=== PATIENT | female | born 1970 | race Caucasian/White ===

== ENCOUNTER 2016-11-15 09:27 | Emergency (ER) | payer OTHER ==
[~2016-11-15] VITALS: Ht 162.6 cm; Wt 53.0 kg
[2016-11-15 09:39] VITALS: BP 109/72; PULSE 78; RESP 18; TEMP 97.8; O2SAT 100
[2016-11-15 09:56] VITALS: O2SAT 100
[2016-11-15] MEDS ORDERED: METO25TA3 PO (09:58)
[2016-11-15] MEDS ORDERED: SYNT88TA PO (09:58)
[2016-11-15] MEDS ORDERED: ALPR.5 PO (09:58)
--- NOTE | 2016-11-15 10:06 | PD ---
HPI Chief Complaint: Chest Pain Time Seen by Provider: 09:43 Travel History International Travel<30 days: No Contact w/Intl Traveler<30days: No Traveled to known affect area: No History of Present Illness HPI 46 years old female complains of epigastric abdominal pain and chest pain. Patient states the symptoms started yesterday. Patient states that she has history of gastroparesis and has been seeing GI specialist for that. Patient states that the pain is stabbing pain aching pain epigastric area and substernally. Patient denies any pain radiation. Patient denies palpitation diaphoresis. Patient states that she had in mid and nausea. Patient states that the pain is not associate with exertion. Patient denies any fever chills. Patient denies history hypertension, diabetes, dyslipidemia. Patient denies history of CAD. Patient has family history of heart disease. 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 PFSH Past Medical History Hx Anticoagulant Therapy: No Anxiety: Yes Heart Rhythm Problems: Yes (Reports irregular heart beat) Cardiovascular Problems: Yes ("Irregular heart beat", MVP) Chemotherapy: No Chest Pain: Yes (This admission) Diabetes: No Gastrointestinal Disorders: Yes ("Gallbladder issues") Respiratory: No Thyroid Disease: Yes (Hypo-) Influenza Vaccination: Yes ?: Not LMP: 11/03/16 Tubal Ligation: Yes Past Surgical History Appendectomy: Yes Hysterectomy: No Social History Alcohol Use: Yes (Occ.) Tobacco Use: No Substance Use: No Allergies-Medications (Allergen,Severity, Reaction): Coded Allergies: Sulfa (Verified Allergy, Severe, Rash, 11/15/16) Lexapro (Verified Adverse Reaction, Severe, Vomiting, 11/15/16) Reported Meds & Prescriptions Reported Meds & Active Scripts Active Reported Xanax (Alprazolam) 0.5 Mg Tab 0.5 Mg PO Q8H PRN Synthroid (Levothyroxine Sodium) 88 Mcg Tab 88 Mcg PO DAILY Metoprolol Tartrate 25 Mg Tab 25 Mg PO DAILY Review of Systems General / Constitutional: No: Fever Eyes: No: Visual changes HENT: No: Headaches Cardiovascular: Positive: Chest Pain or Discomfort Respiratory: No: Shortness of Breath Gastrointestinal: Positive: Abdominal Pain Genitourinary: No: Dysuria Musculoskeletal: No: Pain Skin: No Rash Neurologic: No: Weakness Psychiatric: No: Depression Endocrine: No: Polydipsia Hematologic/Lymphatic: No: Easy Bruising Physical Exam Narrative GENERAL: Well-nourished, well-developed patient. SKIN: Focused skin assessment warm/dry. HEAD: Normocephalic. EYES: No scleral icterus. No injection or drainage. NECK: Supple, trachea midline. No JVD or lymphadenopathy. CARDIOVASCULAR: Regular rate and rhythm without murmurs, gallops, or rubs. RESPIRATORY: Breath sounds equal bilaterally. No accessory muscle use. GASTROINTESTINAL: Abdomen soft, nondistended. Patient has moderate tenderness on palpation epigastric area. No rebound tenderness. No mass. MUSCULOSKELETAL: No cyanosis, or edema. BACK: Nontender without obvious deformity. No CVA tenderness. Neurologic exam normal. Data Data Last Documented VS Vital Signs Date Time Temp Pulse Resp B/P Pulse Ox O2 Delivery O2 Flow Rate FiO2 11/15/16 10:18 51 18 127/55 100 Room Air 11/15/16 09:39 97.8 Orders Electrocardiogram (11/15/16 09:51) Complete Blood Count With Diff (11/15/16 09:51) Comprehensive Metabolic Panel (11/15/16 09:51) Creatine Kinase (Cpk) (11/15/16 09:51) Troponin I (11/15/16 09:51) Lipase (11/15/16 09:51) Chest, Single Ap (11/15/16 09:51) Iv Access Insert/Monitor (11/15/16 09:51) Ecg Monitoring (11/15/16 09:51) Oximetry (11/15/16 09:51) Pantoprazole Inj (Protonix Inj) (11/15/16 10:15) Al-Mag Hy-Si 40-40-4 Mg/Ml Liq (Mag-Al P (11/15/16 10:15) Bbhaz-Sjxowg-Nwrddq-Pb Liq ( Liq (11/15/16 10:15) Ondansetron Inj (Zofran Inj) (11/15/16 10:15) Labs Laboratory Tests Test 11/15/16 10:00 White Blood Count 9.1 TH/MM3 Red Blood Count 4.55 MIL/MM3 Hemoglobin 13.4 GM/DL Hematocrit 40.5 % Mean Corpuscular Volume 89.0 FL Mean Corpuscular Hemoglobin 29.6 PG Mean Corpuscular Hemoglobin 33.2 % Concent Red Cell Distribution Width 13.3 % Platelet Count 221 TH/MM3 Mean Platelet Volume 8.7 FL Neutrophils (%) (Auto) 81.1 % Lymphocytes (%) (Auto) 14.1 % Monocytes (%) (Auto) 3.8 % Eosinophils (%) (Auto) 0.5 % Basophils (%) (Auto) 0.5 % Neutrophils # (Auto) 7.5 TH/MM3 Lymphocytes # (Auto) 1.3 TH/MM3 Monocytes # (Auto) 0.3 TH/MM3 Eosinophils # (Auto) 0.0 TH/MM3 Basophils # (Auto) 0.0 TH/MM3 CBC Comment DIFF FINAL Differential Comment Sodium Level 141 MEQ/L Potassium Level 3.5 MEQ/L Chloride Level 104 MEQ/L Carbon Dioxide Level 27.0 MEQ/L Anion Gap 10 MEQ/L Blood Urea Nitrogen 8 MG/DL Creatinine 0.92 MG/DL Estimat Glomerular Filtration 66 ML/MIN Rate Random Glucose 95 MG/DL Calcium Level 9.3 MG/DL Total Bilirubin 0.9 MG/DL Aspartate Amino Transf 23 U/L (AST/SGOT) Alanine Aminotransferase 15 U/L (ALT/SGPT) Alkaline Phosphatase 40 U/L Total Creatine Kinase 120 U/L Troponin I LESS THAN 0.02 NG/ML Total Protein 7.5 GM/DL Albumin 4.1 GM/DL Lipase 116 U/L [facility] Medical Decision Making Medical Screen Exam Complete: Yes Emergency Medical Condition: Yes Interpretation(s) 11:18 AM. EKG shows sinus rhythm nonspecific ST-T wave change. Last Impressions Chest X-Ray 11/15/16 0951 Signed Impressions: Service Date/Time: Tuesday, November 15, 2016 10:03 - CONCLUSION: 1. Redemonstration of nodular opacity in the left lung base which like reflects a nipple shadow. Oblique radiographs or CT examination may be performed to evaluate for possible nodule on an outpatient basis as clinically warranted. 2. Otherwise, no acute abnormality or significant interval change. Tate Castro MD 11:18 AM. CBC within normal limit. CMP within normal limits. Cardiac enzymes are normal. Differential Diagnosis Differential diagnosis including gastritis, PUD, pancreatitis, cholecystitis, colitis, angina, PA, PE, pneumothorax. Narrative Course 46 years old female with epigastric pain and chest pain. History of gastroparesis. Protonix 40 mg IV. Zofran 4 mg IV. Maalox 30 cc by mouth. 10 cc by mouth. Diagnosis Primary Impression: Chest pain Qualified Code: R07.9 - Chest pain, unspecified type Additional Impression: Gastroparesis Patient Instructions: General Instructions Additional Instructions: Take medications as directed. Follow-up with GI specialist tomorrow as scheduled. Return if worse. Return immediately if increasing chest pain or shortness of breath. Med/Other Pt SpecificInfo: Prescription(s) given Scripts Ondansetron Odt (Zofran Odt)4 Mg Tab4 Mg SL Q6HR PRN (Nausea/Vomiting) #10 TAB Prov:Yao Henderson MD 11/15/16 Pantoprazole (Protonix)20 Mg Tab20 Mg PO DAILY #30 TAB Prov:Yao Henderson MD 11/15/16 Disposition: 01 DISCHARGE HOME Condition: Stable Yao Henderson MD Nov 15, 2016 10:06
[2016-11-15 10:10] LABS: AUTOMATED NEUTROPHIL # 7.5 TH/MM3 (1.8-7.7); BASOPHIL % 0.5 % (0.0-2.0); EOSINOPHIL % 0.5 % (0.0-4.0); HEMATOCRIT 40.5 % (35.0-46.0); HEMO FLAGS DIFF FINAL; LYMPH % 14.1 % (9.0-44.0); LYMPHOCYTE # 1.3 TH/MM3 (1.0-4.8); MEAN CORPUSCULAR HEMOGLOBIN 29.6 PG (27.0-34.0); MEAN CORPUSCULAR HGB CONC 33.2 % (32.0-36.0); MONO % 3.8 % (0.0-8.0); NEUT % 81.1 % (16.0-70.0); PLATELET COUNT 221 TH/MM3 (150-450); RED BLOOD COUNT 4.55 MIL/MM3 (4.00-5.30); RED CELL DISTRIBUTION WIDTH 13.3 % (11.6-17.2); WHITE BLOOD COUNT 9.1 TH/MM3 (4.0-11.0)
[2016-11-15] MEDS ORDERED: ONDANSETRON HCL 4 MG/2 ML VIAL IV PUSH ONE (10:15)
[2016-11-15] MEDS ORDERED: ATROPINE/SCOPOLAM/HYOSCYAM/PB ELIXIR 10 ML CUP PO ONE (10:15)
[2016-11-15] MEDS ORDERED: PANTOPRAZOLE SODIUM 40 MG VIAL IV PUSH ONE (10:15)
[2016-11-15] MEDS ORDERED: ALUMINUM/MAGNESIUM/SIMETH 30 ML CUP PO ONE (10:15)
[2016-11-15 10:17] LABS: CHLORIDE 104 MEQ/L (98-107); POTASSIUM 3.5 MEQ/L (3.5-5.1); SODIUM (NA) 141 MEQ/L (136-145)
[2016-11-15 10:18] VITALS: BP 127/55; PULSE 51; RESP 18; O2SAT 100
[2016-11-15 10:20] LABS: ANION GAP 10 MEQ/L (5-15)
[2016-11-15 10:21] LABS: BLOOD UREA NITROGEN 8 MG/DL (7-18)
--- NOTE | 2016-11-15 10:22 | RADHPO ---
EXAM DATE/TIME: 11/15/2016 10:03 [facility] COMPARISON: CHEST SINGLE AP, March 30, 2015, 17:52. INDICATIONS : Chest pain. MEDICAL HISTORY : Hypothyroidism. Mitral valve prolapse. Gall bladder issues. Irregular heart beat. SURGICAL HISTORY : Appendectomy. Tubal ligation. ENCOUNTER: Initial ACUITY: 1 day PAIN SCORE: 7/10 LOCATION: chest FINDINGS: Previously described nodular opacity in the left lung base is again noted and likely reflects a nippl e shadow. Lungs are otherwise clear. Cardiomediastinal contours are within normal limits. Bony thorax is intact. CONCLUSION: 1. Redemonstration of nodular opacity in the left lung base which like reflects a nipple shadow. Obli que radiographs or CT examination may be performed to evaluate for possible nodule on an outpatient b asis as clinically warranted. 2. Otherwise, no acute abnormality or significant interval change. Tate Castro MD on November 15, 2016 at 10:16 Board Certified Radiologist. This report was verified electronically.
[2016-11-15 10:23] LABS: ALT (GPT) 15 U/L (10-53); AST (GOT) 23 U/L (15-37)
[2016-11-15 10:24] LABS: GLOMERULAR FILTRATION RATE 66 ML/MIN (>89)
[2016-11-15 10:25] LABS: TOTAL BILIRUBIN ADULT 0.9 MG/DL (0.2-1.0)
[2016-11-15 10:26] LABS: ALKALINE PHOSPHATASE 40 U/L (45-117); CREATINE KINASE 120 U/L (26-192)
[2016-11-15] MEDS ORDERED: ZOFR4TAB3 SL (11:31)
[2016-11-15] MEDS ORDERED: PANT20 PO (11:31)
[2016-11-15 11:32] VITALS: BP 99/61; PULSE 74; RESP 18; O2SAT 99
--- NOTE | 2016-11-15 18:21 | EKG ---
Date Performed: 11/15/2016 Time Performed: 09:39:12 PTAGE: 46 years EKG: BASELINE ARTIFACT PRESENT. Sinus rhythm Poor R wave progression - probable normal variant Inferior/lateral ST-T changes are nonspecific [place] christi ECG NO SIGNIFICANT CHANGE FROM PRIOR ELECTROCARDIOGRAM. PREVIOUS TRACING : 03/30/2015 17.23 DOCTOR: Alfonso Persaud Interpretating Date/Time 11/15/2016 18:21:12
== END 2016-11-15 11:46 | disposition home or self-care (01) ==
LOC: PHED 09:27
DX: R07.9 Chest pain, unspecified (principal); K31.84 Gastroparesis
CPT/HCPCS: 71010; 80053; 82550; 83690; 84484; 85025; 93005; 96374; 96375; 99285; C9113; J2405